=== PATIENT | male | born 1995 | race Hispanic/Latino ===

== ENCOUNTER 2019-10-19 20:51 | Emergency (ER) | payer BC ==
[~2019-10-19] VITALS: Ht 180.3 cm; Wt 88.9 kg
[~2019-10-19 20:51] MED LIST: CLINDAMYCIN HC300 MG PO
[2019-10-19] MEDS ORDERED: SODIUM CHLORIDE 0.9% 1000ML 1,000 ML IV STA (21:01)
[2019-10-19] MEDS ORDERED: KETOROLAC TROMETHAMINE 30 MG/ML VIAL IV STA (21:01)
--- NOTE | 2019-10-19 21:11 | Emergency Department Note ---
History of Present Illnes History of Present Illness Chief Complaint: Chest Pain History of Present Illness This is a 24 year old male with complaints of chest pain for 3 years, i ntermittent pt states pain changed of the past few days as it developed under his right rib. Pt complaining of intermittent SOB, not worse with activity. 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 Any updates have been documented here. Past Medical History Recent Fever: No Clinical Suspicion of Infectio: No Past Medical History: None Past Surgical History: None Social History Smoking Cessation: Never Smoker Alcohol Use: Daily Any Illegal Drug Use: No TB Exposure/Symptoms: No Physically hurt or threatened: No Family History Other family history Family history of HTN Other Last Tetanus: ood Review of Systems Review of Systems Constitutional: no symptoms; chills, diaphoresis EENTM: no symptoms Cardiovascular: no symptoms, chest pain; palpitations, syncope Respiratory: no symptoms, as per HPI, dyspnea; dyspnea on exertion Gastrointestinal: no symptoms; abdominal pain, constipation, diarrhea, nausea Genitourinary: no symptoms; dysuria Musculoskeletal: no symptoms; back pain, muscle pain, muscle stiffness Neurological: no symptoms; headache, numbness, paresthesia, weakness Psychological: no symptoms; anxiety Endocrine: no symptoms Hematological/Lymphatic: no symptoms Review of other systems All other systems reviewed and negative. Physical Exam Related Data Allergies: Coded Allergies: cefprozil (Verified Allergy, Unknown, RASH, 01/01/17) Vital signs reviewed: Yes Physical Exam CONSTITUTIONAL Constitutional: well-developed, well-nourished HENT HENT: normocephalic, atraumatic, oropharynx clear/moist, nose normal HENT L/R: left ext ear normal, right ext ear normal EYES Eyes: PERRL, conjunctivae normal NECK Neck: ROM normal PULMONARY Pulmonary: effort normal, breath sounds normal CARDIOVASCULAR Cardiovascular: regular rhythm, heart sounds normal, capillary refill normal, normal rate GASTROINTESTINAL Abdominal: soft, nontender, bowel sounds normal GENITOURINARY Genitourinary: exam deferred SKIN Skin: warm, dry MUSCULOSKELETAL Musculoskeletal: ROM normal NEUROLOGICAL Neurological: alert, oriented x 3, no gross motor or sensory deficits PSYCHOLOGICAL Psychological: mood/affect normal, judgement normal Results Laboratory Lab results reviewed: Yes Laboratory comments Laboratory Tests Test 10/19/19 21:05 White Blood Count 13.76 x10e3/uL (4.8-10.8) Red Blood Count 4.87 x10e6/uL (4.3-5.7) Hemoglobin 14.6 g/dL (14.0-18.0) Hematocrit 42.8 % (38.2-49.6) Mean Corpuscular Volume 87.9 fL (81-99) Mean Corpuscular Hemoglobin 30.0 pg (28-32) Mean Corpuscular Hemoglobin Concent 34.1 g/dL (31-35) Red Cell Distribution Width 12.0 % (11.7-14.4) Platelet Count 315 x10e3/uL (140-360) Neutrophils (%) (Auto) 63.7 % (38.7-80.0) Lymphocytes (%) (Auto) 28.6 % (18.0-39.1) Monocytes (%) (Auto) 6.6 % (4.4-11.3) Eosinophils (%) (Auto) 0.2 % (0.0-6.0) Basophils (%) (Auto) 0.5 % (0.0-1.0) Neutrophils # (Auto) 8.8 (2.1-6.9) Lymphocytes # (Auto) 3.9 (1.0-3.2) Monocytes # (Auto) 0.9 (0.2-0.8) Eosinophils # (Auto) 0.0 (0.0-0.4) Basophils # (Auto) 0.1 (0.0-0.1) Absolute Immature Granulocyte (auto 0.05 x10e3/uL (0-0.1) D-Dimer Quantitative (PE/DVT) < 100 ng/mL (0-400) Sodium Level 138 mmol/L (136-145) Potassium Level 3.6 mmol/L (3.5-5.1) Chloride Level 104 mmol/L (98-107) Carbon Dioxide Level 21 mmol/L (22-29) Anion Gap 16.6 mmol/L (8-16) Blood Urea Nitrogen 11 mg/dL (7-26) Creatinine 0.84 mg/dL (0.72-1.25) Estimat Glomerular Filtration Rate > 60 ML/MIN (60-) BUN/Creatinine Ratio 13 (6-25) Glucose Level 100 mg/dL (74-118) Calcium Level 9.9 mg/dL (8.4-10.2) Total Bilirubin 0.5 mg/dL (0.2-1.2) Aspartate Amino Transf (AST/SGOT) 30 IU/L (5-34) Alanine Aminotransferase (ALT/SGPT) 59 IU/L (0-55) Alkaline Phosphatase 132 IU/L (40-150) Creatine Kinase 200 IU/L (30-200) Creatine Kinase MB 2.70 ng/mL (0-5.0) Troponin I < 0.001 ng/mL (0-0.300) Total Protein 8.3 g/dL (6.5-8.1) Albumin 4.7 g/dL (3.5-5.0) Globulin 3.6 g/dL (2.3-3.5) Albumin/Globulin Ratio 1.3 (0.8-2.0) Ethyl Alcohol Level < 10.0 mg/dL (0.0-10.0) Imaging Imaging results reviewed: Yes Impressions IMPRESSION: No acute thoracic abnormality. 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 Assessment & Plan Assessment & Plan Problems: (1) Chest pain Assessment & Plan 24 M arrived to the ED with long standing history of chest pain -cbc, cmp, cardiac markers -EKG -CXR Reassessment Reassessment Pt re-evaluated at bedside reports improvement with pain medications- discussed all labs and imaging outpt referral given Depart Disposition: HOME, SELF-correction Meds Active Scripts Lidocaine/Menthol (LIDOPATCH) 1 Each Adh..patch, 1 PATCH TOP DAILY PRN for CHEST PAIN, #10 PATCH Prov:SERGEI TIAN DO 10/19/19 Reported Medications Clindamycin Hcl (CLINDAMYCIN HCL) 300 Mg Capsule, 300 MG PO TID 01/01/17 SERGEI TIAN, October 19, 2019 21:11
[2019-10-19] MEDS ORDERED: LIDOCAINE 4% PATCH TP SCH (21:15)
[2019-10-19 21:41] LABS: BASOPHILS # (AUTO) 0.1 (0.0-0.1); BASOPHILS % 0.5 % (0.0-1.0); EOSINOPHILS % 0.2 % (0.0-6.0); HEMATOCRIT 42.8 % (38.2-49.6); HEMOGLOBIN 14.6 g/dL (14.0-18.0); LYMPHOCYTES # (AUTO) 3.9 (1.0-3.2); LYMPHOCYTES % 28.6 % (18.0-39.1); MEAN CORPUSCULAR HGB CONC 34.1 g/dL (31-35); MEAN CORPUSCULAR VOLUME 87.9 fL (81-99); MONOCYTES # (AUTO) 0.9 (0.2-0.8); MONOCYTES % 6.6 % (4.4-11.3); NEUTROPHILS # (AUTO) 8.8 (2.1-6.9); NEUTROPHILS % 63.7 % (38.7-80.0); PLATELET COUNT 315 x10e3/uL (140-360); RED BLOOD COUNT 4.87 x10e6/uL (4.3-5.7)
--- NOTE | 2019-10-19 21:45 | Diagnostic Imaging Report ---
EXAMINATION: CHEST SINGLE (PORTABLE) INDICATION: Chest pain. COMPARISON: None FINDINGS: TUBES and LINES: None. LUNGS: Lungs are moderately inflated. There is no evidence of pneumonia or pulmonary edema. PLEURA: No pleural effusion or pneumothorax. HEART AND MEDIASTINUM: The cardiomediastinal silhouette is unremarkable. BONES AND SOFT TISSUES: No acute osseous lesion. Soft tissues are unremarkable. UPPER ABDOMEN: No free air under the diaphragm. IMPRESSION: No acute thoracic abnormality. Signed by: Dr. Phong Avery MD on 10/19/2019 9:42 PM
[2019-10-19 22:01] LABS: ALANINE AMINOTRANSFERASE 59 IU/L (0-55); ALBUMIN 4.7 g/dL (3.5-5.0); ALBUMIN/GLOBULIN RATIO 1.3 (0.8-2.0); ALKALINE PHOSPHATASE 132 IU/L (40-150); ANION GAP 16.6 mmol/L (8-16); BLOOD UREA NITROGEN 11 mg/dL (7-26); BUN/CREATININE RATIO 13 (6-25); CALCIUM 9.9 mg/dL (8.4-10.2); CARBON DIOXIDE 21 mmol/L (22-29); CHLORIDE 104 mmol/L (98-107); CREATINE KINASE 200 IU/L (30-200); CREATININE, SERUM 0.84 mg/dL (0.72-1.25); EST GLOMERULAR FILTRATION RATE > 60 ML/MIN (60-); GLUCOSE 100 mg/dL (74-118); POTASSIUM 3.6 mmol/L (3.5-5.1); SODIUM 138 mmol/L (136-145)
[2019-10-19] MEDS ORDERED: LIDOPATCH1 EACH TOP (23:55)
[2019-10-20 00:01] VITALS: BP 125/81
== END 2019-10-20 00:17 | disposition home or self-care (01) ==
LOC: ER 20:51
DX: R07.9 Chest pain, unspecified (principal); R06.02 Shortness of breath
CPT/HCPCS: 36415; 71045; 80053; 80320; 82550; 82553; 84484; 85025; 85379; 93005; 99284; J1885; J7030